=== PATIENT | male | born 1980 | race Caucasian/White ===

== ENCOUNTER 2020-02-17 11:41 | Emergency (ER) | payer MEDICARE, MEDICAID, SELFPAY ==
[2020-02-17 11:44] VITALS: BP 137/85; PULSE 88; RESP 20; TEMP 37.1; O2SAT 99
--- NOTE | 2020-02-17 12:02 | ECG_ITS ---
Measurements Intervals [place] Rate: 83 P: 9 MO: 196 QRS: 50 QRSD: 89 T: 68 QT: 335 QTc: 394 Interpretive Statements SINUS RHYTHM CONSIDER ANTEROSEPTAL INFARCT, AGE INDETERMINATE BORDERLINE ST-T WAVE ABNORMALITY- HIGH LATERAL LEADS BASELINE ARTIFACT- I, II, III, AVR, AVL, AVF ABNORMAL ECG Electronically Signed On 02-17-2020 12:39:39 CDT by Evan Sanz D.O.
[2020-02-17 12:20] LABS: Basophils Percent Auto 0.3 % (0.2-1.2); Eosinophils Absolute Auto 0.2 K/mm3 (0-0.3); Eosinophils Percent Auto 1.7 % (0-4.4); Hematocrit 43.1 % (42.0-52.0); Hemoglobin 15.1 g/dL (14.0-18.0); Immature Granulocyte Absolute 0.08 K/mm3 (0.00-0.031); Immature Granulocyte Percent A 0.7 % (0-0.5); Lymphocytes Absolute Auto 2.54 K/mm3 (0.9-3.2); Lymphocytes Percent Auto 21.5 % (18.3-44.2); Mean Corpuscular Hemoglobin 30.9 pg (26-34); Mean Corpuscular Volume 88.1 fl (80-100); Mean Platelet Volume 9.4 fl (7.4-10.4); Monocytes Absolute Auto 1.4 K/mm3 (0.1-0.6); Monocytes Percent Auto 11.7 % (2.6-8.5); Neutrophils Absolute Auto 7.6 K/mm3 (1.3-6.7); Neutrophils Percent Auto 64.1 % (45.5-73.1); Platelet Count Result 304 k/mm3 (150-375); Red Blood Count 4.89 M/mm3 (4.6-6.20); Red Cell Distribution Width 13.2 % (11.5-14.5); White Blood Count 11.8 K/mm3 (4.5-10.0)
[2020-02-17 12:33] LABS: Alanine Aminotransferase 69 U/L (4-50); Albumin Level 4.6 g/dL (3.5-5.1); Alkaline Phosphatase 64 U/L (38-126); Aspartate Amino Transferase 44 U/L (17-59); Bilirubin,Total 0.5 mg/dL (0.2-1.3); Blood Urea Nitrogen 13 mg/dL (9-20); Carbon Dioxide 26 mmol/L (22-30); Chloride 90 mmol/L (98-107); Estimated CRCL calculation 122 ml/min; Estimated Glomerular Filt Rate > 60; Glucose 112 mg/dL (75-110); Potassium 4.8 mmol/L (3.4-5.0); Sodium 127 mmol/L (137-145)
[2020-02-17 12:43] VITALS: BP 128/64; PULSE 70; RESP 20; O2SAT 100
--- NOTE | 2020-02-17 12:43 | ED.RECABL ---
HPI - Recheck/Abnormal Lab/Rx General Chief Complaint: Recheck/Abnormal Lab/Rx Stated Complaint: elevated k+ Time Seen by Provider: 02/17/20 12:17 Source: patient Mode of arrival: ambulatory Limitations: no limitations History of Present Illness HPI narrative: This is a 39-year-old male that presents to the emergency department for abnormal labs. Reports he was told by his endless belt finisher to come to the ER because his potassium was elevated on labs that were drawn yesterday. Patient has no current complaints. Denies fever, chest pain, shortness of breath, abdominal pain or vomiting. Related Data Home Medications Medication Instructions Recorded Confirmed carvedilol 12.5 mg tablet 12.5 mg PO BID tablet 07/30/19 01/29/20 lisinopril 20 mg tablet 20 mg PO BID 07/30/19 01/29/20 spironolactone 25 mg tablet 25 mg PO DAILY tablet 07/30/19 01/29/20 magnesium oxide 400 mg PO BID 07/31/19 01/29/20 diltiazem HCl 60 mg 60 mg PO TID cap 01/29/20 01/29/20 capsule,extended release 12 hr Allergies Allergy/AdvReac Type Severity Reaction Status Date / Time No Known Allergies Allergy Verified 01/29/20 09:38 Review of Systems Review of Systems: Narrative: CONSTITUTIONAL: Denies fever CARDIOVASCULAR: Denies chest pain, or edema. RESPIRATORY: Denies dyspnea. 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 Dilated cardiomyopathy SORIA (dyspnea on exertion) Dyslipidemia Essential hypertension Ischemic dilated cardiomyopathy LBBB (left bundle branch block) Unspecified systolic heart failure Surgical History Surgical History (Updated 07/30/19 @ 10:32 by Estephanie Champion CMA) Status post double vessel coronary artery bypass Family History Family History (Updated 02/04/14 @ 15:15 by DOCTOR UNKNOWN) Other Family history of coronary artery disease Social History Social History Smoking status: Former smoker Alcohol intake: current Exam Narrative: Exam Narrative: GENERAL: Well-appearing, well-nourished, and in no acute distress. HEAD: Normocephalic, atraumatic. EYES: EOMI. NECK: Supple. No adenopathy or masses. No carotid bruits or JVD CHEST: Clear to auscultation. No respiratory distress. No wheezes rales or rhonchi HEART: Regular rate and rhythm. No murmur heard. Normal peripheral pulses. EXTREMITIES: Normal range of motion. No edema. SKIN: Warm, dry, no rash. NEURO: No focal deficits. Alert and oriented x3. PSYCH: Normal mood and affect Course Consultations Consultation #1: Spoke with Dr. Sanz about patient and work-up will follow-up in clinic as scheduled. Date: 02/17/20 Time: 13:00 Vital Signs Vital signs: Vital Signs Temperature 98.8 F 02/17/20 11:44 Pulse Rate 88 02/17/20 11:44 Respiratory Rate 20 02/17/20 11:44 Blood Pressure 137/85 02/17/20 11:44 Pulse Oximetry 99 02/17/20 11:44 Temperature 98.8 F 02/17/20 11:44 Pulse Rate 70 02/17/20 12:43 Respiratory Rate 20 02/17/20 12:43 Blood Pressure 128/64 02/17/20 12:43 Pulse Oximetry 100 02/17/20 12:43 MDM - Recheck/Abnormal Lab/Rx MDM Narrative Medical decision making narrative: Patient presents to the emergency department for hyperkalemia. Had labs drawn at another facility yesterday. Was told to report to the ER by his endless belt finisher for elevated potassium. Patient has no complaints today. No acute changes on his EKG. Troponin is negative. He denies any chest pain. Potassium today is normal at 4.8. Patient is hyponatremic with sodium of 127, which seems to be chronic for him. Our most recent labs of his are from 2017 and it looks like she runs in the high 120s and low 130s. Patient and fam
[2020-02-17 12:44] LABS: Troponin I < 0.012 ng/mL (0.000-0.034)
[2020-02-17 13:10] VITALS: BP 113/68; PULSE 65; RESP 20; O2SAT 100
== END 2020-02-17 13:11 | disposition home or self-care (01) ==
PROVIDERS: Emergency Provider Emergency Medicine; PCP Family Medicine Adolescent Medicine
DX: E87.1 Hypo-osmolality and hyponatremia (principal); I48.91 Unspecified atrial fibrillation; I25.10 Atherosclerotic heart disease of native coronary artery without angina pectoris; E78.5 Hyperlipidemia, unspecified; I10 Essential (primary) hypertension; Z95.1 Presence of aortocoronary bypass graft; I50.20 Unspecified systolic (congestive) heart failure; Z87.891 Personal history of nicotine dependence; R94.31 Abnormal electrocardiogram [ECG] [EKG]
CPT/HCPCS: 36415; 80053; 84484; 85025; 93005; 99284

== ENCOUNTER 2021-12-09 21:32 | Emergency (ER) | payer MEDICARE, MEDICAID, SELFPAY ==
[2021-12-09] VITALS (10 sets, daily range): BP systolic 106–137; BP diastolic 78–92; PULSE 74–95; RESP 18–23; TEMP 36.7–36.9; O2SAT 96–100
--- NOTE | ~2021-12-09 | XR_ITS ---
EXAMINATION: XR chest 2V DATE: 12/09/2021 21:59 INDICATION: Shortness of breath. Atrial fibrillation. TECHNIQUE: PA and lateral views of the chest were obtained. COMPARISON: Chest radiograph dated 06/18/[address] dated 04/04/1950 FINDINGS: Persistent subtle linear atelectasis/scarring in the right lower lung zone. No new airspace opacities , pulmonary edema, pleural effusion or pneumothorax. Borderline heart size. Median sternotomy wires a nd mediastinal surgical clips are seen, likely from prior coronary artery bypass grafting. Three lead pacemaker/AICD seen with leads projecting over the expected locations of the right atrial appendage, apex of the right ventricle and overlying the left ventricle likely having traversed the coronary si nus. IMPRESSION: 1. Chronic mild discoid atelectasis/scarring in the right lower lung zone. No acute cardiopulmonary d isease. Reviewed, dictated and finalized at location A. IMPRESSION: 1. Chronic mild discoid atelectasis/scarring in the right lower lung zone. No a cute cardiopulmonary disease.
--- NOTE | 2021-12-09 21:45 | ECG_ITS ---
Measurements Intervals [place] Rate: 89 P: 48 SC: 187 QRS: 32 QRSD: 106 T: 91 QT: 327 QTc: 400 Interpretive Statements SINUS RHYTHM ANTERIOR MYOCARDIAL INFARCTION , O OLD] COMPARED TO ECG 02/17/2020 11:54:00 NO SIGNIFICANT CHANGES Electronically Signed On 12-10-2021 20:40:45 CDT by Jhonatan Belle M.D.
[2021-12-09 21:55] LABS: Basophils Absolute Auto 0.1 K/mm3 (0.0-0.1); Basophils Percent Auto 0.6 % (0.2-1.2); Eosinophils Absolute Auto 0.2 K/mm3 (0-0.3); Eosinophils Percent Auto 1.9 % (0-4.4); Hemoglobin 16.6 g/dL (14.0-18.0); Immature Granulocyte Absolute 0.04 K/mm3 (0.00-0.031); Immature Granulocyte Percent A 0.3 % (0-0.5); Lymphocytes Absolute Auto 3.35 K/mm3 (0.9-3.2); Lymphocytes Percent Auto 27.2 % (18.3-44.2); Mean Corpuscular HGB Conc 33.9 g/dl (32-36); Mean Corpuscular Hemoglobin 31.6 pg (26-34); Mean Corpuscular Volume 93.3 fl (80-100); Mean Platelet Volume 10.9 fl (7.4-10.4); Monocytes Absolute Auto 1.5 K/mm3 (0.1-0.6); Monocytes Percent Auto 11.9 % (2.6-8.5); Neutrophils Absolute Auto 7.1 K/mm3 (1.3-6.7); Neutrophils Percent Auto 58.1 % (45.5-73.1); Platelet Count Result 217 k/mm3 (150-375); Red Blood Count 5.25 M/mm3 (4.6-6.20); Red Cell Distribution Width 13.9 % (11.5-14.5); White Blood Count 12.3 K/mm3 (4.5-10.0)
[2021-12-09 22:02] LABS: Alanine Aminotransferase 43 U/L (4-50); Albumin Level 4.4 g/dL (3.5-5.1); Alkaline Phosphatase 61 U/L (38-126); Anion Gap 8 mmol/L (8-16); Aspartate Amino Transferase 36 U/L (17-59); Bilirubin,Total 0.4 mg/dL (0.2-1.3); Blood Urea Nitrogen 21 mg/dL (9-20); Calcium 8.7 mg/dL (8.4-10.2); Carbon Dioxide 25 mmol/L (22-30); Chloride 103 mmol/L (98-107); Estimated CRCL calculation 92 ml/min; Estimated Glomerular Filt Rate > 60; Glucose 104 mg/dL (65-110); Lipase 47 U/L (23-300); Sodium 136 mmol/L (137-145)
[2021-12-09 22:03] LABS: INR 1.1; Prothrombin Time 14.1 Seconds (11.1-14.7)
[2021-12-09 22:04] LABS: Partial Thromboplastin Time 33.7 SECONDS (22.3-36.8)
[2021-12-09 22:13] LABS: Troponin I < 0.012 ng/mL (0.000-0.034)
--- NOTE | 2021-12-09 22:48 | ED.ARRPALP ---
HPI - Arrhythmia/Palpitations General Chief Complaint: Arrhythmia/Palpitations Stated Complaint: A-fib Time Seen by Provider: 12/09/21 21:38 History of Present Illness HPI narrative: Patient is a 41-year-old male who presents ER with concerns of atrial fibrillation. Patient has history of A. fib, coronary disease, and ischemic cardiomyopathy. He has an AICD. Reports he was at rest when his watch alerted him to a high heart rate in the 130s. Reports he could feel it moving a little quickly. The rate would wax and wane in intensity. He did take his evening carvedilol afterwards. Patient is having no symptoms at this time. At no point in having the elevated heart rate did he have chest pain or shortness of breath or lightheadedness or diaphoresis. Patient takes Eliquis and has not missed a dose. Related Data Home Medications Medication Instructions Recorded Confirmed spironolactone 25 mg tablet 25 mg PO DAILY tablet 07/30/19 08/29/21 magnesium oxide 400 mg PO BID 07/31/19 08/29/21 sacubitril 24 mg-valsartan 26 mg 1 tablet PO BID 08/29/21 tablet spironolactone 12/09/21 Allergies Allergy/AdvReac Type Severity Reaction Status Date / Time No Known Allergies Allergy Verified 12/09/21 21:39 Review of Systems Review of Systems: All systems reviewed & are unremarkable except as noted in HPI and below Constitutional: Constitutional: Denies chills, Denies fever(s) and Denies weakness ENT: Denies nasal congestion and Denies sore throat Cardiovascular: Cardiovascular: Denies chest pain, Reports rapid heart rate and Denies radiating jaw, neck or arm pain Respiratory: Respiratory: Denies cough, Denies dyspnea and Denies wheezing Gastrointestinal: Gastrointestinal: Denies abdominal pain, Denies nausea and Denies vomiting [facility] Past Medical History Medical History Atrial fibrillation by electrocardiography 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) Other Family history of coronary artery disease Social History Social History (Reviewed 08/29/21 @ 09:28 by Emily Handley [facility]) Smoking status: Former smoker Alcohol intake: current Exam Narrative: GENERAL: Well-appearing, well-nourished, and in no acute distress. HEAD: Normocephalic, atraumatic. EYES: PERRL and EOMI. ENT: Mucous membranes moist. CHEST: Clear to auscultation. No respiratory distress. HEART: Regular rate and rhythm. Normal peripheral pulses. EXTREMITIES: Normal range of motion. No edema. SKIN: Warm, dry, no rash. NEURO: Alert and oriented x3. PSYCH: Normal mood and affect. Course Course Emergency Course: Resting comfortably, no arrhythmia/cp/soa. D/c home. Vital Signs Vital signs: Vital Signs Temperature 98.4 F 12/09/21 21:34 Pulse Rate 87 12/09/21 21:34 Respiratory Rate 22 H 12/09/21 21:34 Blood Pressure 137/92 H 12/09/21 21:34 Pulse Oximetry 99 12/09/21 21:34 Temperature 98.4 F 12/09/21 21:34 Pulse Rate 77 12/09/21 22:16 Respiratory Rate 21 H 12/09/21 22:16 Blood Pressure 114/82 12/09/21 22:16 Pulse Oximetry 96 12/09/21 22:16 MDM - Arrhythmia/Palpitations Lab Data Result diagrams: 12/09/21 21:42 12/09/21 21:42 Labs: Lab Results 12/09/21 12/09/21 12/09/21 Range/Units 21:42 21:42 21:42 WBC 12.3 H (4.5-10.0) K/mm3 RBC 5.25 (4.6-6.20) M/mm3 Hgb 16.6 (14.0-18.0) g/dL Hct 49.0 (42.0-52.0) % MCV 93.3 (80-100) fl
== END 2021-12-09 23:20 | disposition home or self-care (01) ==
PROVIDERS: Emergency Provider Emergency Medicine; PCP Family Medicine Adolescent Medicine
DX: I48.0 Paroxysmal atrial fibrillation (principal); I25.5 Ischemic cardiomyopathy; I42.0 Dilated cardiomyopathy; I25.719 Atherosclerosis of autologous vein coronary artery bypass graft(s) with unspecified angina pectoris; E78.5 Hyperlipidemia, unspecified; I50.20 Unspecified systolic (congestive) heart failure; I11.0 Hypertensive heart disease with heart failure; Z95.1 Presence of aortocoronary bypass graft; Z95.810 Presence of automatic (implantable) cardiac defibrillator; Z87.891 Personal history of nicotine dependence; Z79.01 Long term (current) use of anticoagulants; R94.31 Abnormal electrocardiogram [ECG] [EKG]
CPT/HCPCS: 36415; 71046; 80053; 83690; 84484; 85025; 85610; 85730; 93005; 99284